=== PATIENT | male | born 1945 | race Caucasian/White ===

== ENCOUNTER → 2023-09-20 08:39 | Outpatient (REF) | payer MEDICARE, OTHER, SELFPAY ==
[2023-09-20 12:06] LABS: Glycohemoglobin (HgbA1c) 6.1 % (4.0-5.6)
== END ==
LOC: HWLAB 08:39
PROVIDERS: ATTENDING PHYSICIAN Physician Assistant
DX: E11.9 Type 2 diabetes mellitus without complications (principal)
CPT/HCPCS: 36415; 83036

== ENCOUNTER → 2023-10-25 08:15 | Outpatient (REF) | payer MEDICARE, OTHER, SELFPAY ==
[2023-10-25 09:47] LABS: % Basophils 0.4 % (0-2); % Eosinophils 2.5 % (0-6); % Immature Granulocytes 0.3 % (0-0.5); % Lymphocytes 28.8 % (20.5-51.1); % Monocytes 10.6 % (1.7-9.3); % Neutrophils 57.4 % (42.2-75.2); Absolute Eosinophils 0.2 10^3/uL (0-0.7); Absolute Monocytes 0.7 10^3/uL (0.1-0.6); Hematocrit 45.5 % (39.0-52.0); Hemoglobin 15.3 g/dL (13.0-18.0); Mean Corp Hgb Conc. 33.6 g/dL (33.0-37.0); Mean Corpuscular Hgb 31.5 pg (27.0-31.0); Mean Corpuscular Volume 93.8 fL (80.0-94.0); Mean Platelet Volume 9.8 fL (7.4-10.4); Nucleated Red Blood Cells % 0 % (-); Platelet Count 154 10^3/uL (130-400); Red Blood Cell Count 4.85 10^6/uL (4.70-6.10); Red Cell Dist. Width 13.6 % (11.5-14.5); White Blood Cell Count 6.9 10^3/uL (4.8-10.8)
[2023-10-25 10:02] LABS: ALT (SGPT) 31 U/L (0-50); AST (SGOT) 37 U/L (17-59); Alkaline Phosphatase 72 U/L (38-126); Carbon Dioxide 27 mmol/L (22-30); Glucose 113 mg/dl (70-99); eGFR > 60.00
[2023-10-25 10:13] LABS: Albumin 4.6 g/dl (3.5-5.0); Blood Urea Nitrogen 18 mg/dl (9-20); Calcium 9.2 mg/dl (8.4-10.2); Chloride 103 mmol/L (98-107); HDL Cholesterol 36 mg/dl; LDL Cholesterol, Calculated 78 mg/dl; Potassium 4.3 mmol/L (3.5-5.1); Sodium 138 mmol/L (135-145); Total Bilirubin 0.7 mg/dl (0.2-1.3); Total Cholesterol 142 mg/dl (50-199); Total Protein 6.9 g/dl (6.3-8.2); Triglyceride 143 mg/dl (10-149); Very Low Density Lipoprotein 28 mg/dl (0-30)
[2023-10-25 10:30] LABS: PSA, Total - Screen 1.69 ng/ml (0.0-4.0)
[2023-10-25 10:47] LABS: Glycohemoglobin (HgbA1c) 6.1 % (4.0-5.6)
[2023-10-25 11:27] LABS: Microalbumin, Random Urine 0.9 mg/dl (0.6-1.7)
== END ==
LOC: HWLAB 08:15
PROVIDERS: ATTENDING PHYSICIAN Physician Assistant
DX: G25.0 Essential tremor (principal); E11.9 Type 2 diabetes mellitus without complications; I10 Essential (primary) hypertension; E78.00 Pure hypercholesterolemia, unspecified; G45.9 Transient cerebral ischemic attack, unspecified; R60.0 Localized edema; Z12.5 Encounter for screening for malignant neoplasm of prostate
CPT/HCPCS: 36415; 80053; 80061; 82043; 83036; 85025; G0103

== ENCOUNTER 2024-06-13 21:12 | Inpatient (IN) | payer MEDICARE, OTHER, SELFPAY ==
[2024-06-13 12:17] VITALS: BP 149/90
[2024-06-13 12:31] LABS: % Basophils 0.3 % (0-2); % Eosinophils 0.6 % (0-6); % Immature Granulocytes 0.2 % (0-0.5); % Lymphocytes 8.3 % (20.5-51.1); % Monocytes 12.6 % (1.7-9.3); Absolute Eosinophils 0.1 10^3/uL (0-0.7); Absolute Lymphocytes 1.2 10^3/uL (1.2-3.4); Absolute Monocytes 1.8 10^3/uL (0.1-0.6); Absolute Neutrophils 11.3 10^3/uL (1.4-6.5); Hematocrit 47.4 % (39.0-52.0); Hemoglobin 16.7 g/dL (13.0-18.0); Mean Corp Hgb Conc. 35.2 g/dL (33.0-37.0); Mean Corpuscular Hgb 32.1 pg (27.0-31.0); Mean Platelet Volume 9.4 fL (7.4-10.4); Nucleated Red Blood Cells % 0 % (-); Platelet Count 159 10^3/uL (130-400); Red Blood Cell Count 5.21 10^6/uL (4.70-6.10); Red Cell Dist. Width 13.9 % (11.5-14.5); White Blood Cell Count 14.4 10^3/uL (4.8-10.8)
[2024-06-13 12:47] LABS: ALT (SGPT) 20 U/L (0-50); AST (SGOT) 26 U/L (17-59); Albumin 4.4 g/dl (3.5-5.0); Alkaline Phosphatase 83 U/L (38-126); Blood Urea Nitrogen 13 mg/dl (9-20); Calcium 9.2 mg/dl (8.4-10.2); Carbon Dioxide 23 mmol/L (22-30); Chloride 104 mmol/L (98-107); Glucose 144 mg/dl (70-99); Potassium 4.5 mmol/L (3.5-5.1); Sodium 139 mmol/L (135-145); Total Bilirubin 0.9 mg/dl (0.2-1.3); Total Protein 6.7 g/dl (6.3-8.2); eGFR > 60.00
[2024-06-13 15:38] VITALS: BP 138/75
--- NOTE | 2024-06-13 16:37 | ED.GENMED ---
History of Present Illness
General
Chief Complaint: Flank Pain
Source: patient
Exam Limitations: none
Time Seen by Provider: 06/13/24 16:09
Nursing documentation reviewed up to this point in time: agreed with
History of Present Illness
History of Present Illness:
79-year-old male right flank pain onset a few days ago history of kidney stones never required stenting has had lithotripsy, type II diabetic on metformin said to Naprosyn with minimal relief no fevers no chills
Past History
Past History
ED Past Medical History: Hypercholesterolemia and Other (Kidney stones, Spinal stenosis)
ED Past Surgical History: Orthopedic (hip replacement) and Urological (Lithotripsy)
Social History
Tobacco: Non-smoker
Alcohol: Occasional
Drug: None
Personal:
Living: with family
Employment: Retired
Family History
Family History: Other (Mother with colon cancer)
Review of Systems
Review of Systems
All Other Systems: Not applicable
Constitutional: Denies fever or fatigue
Respiratory: Reports no symptoms
Cardiac: Reports no symptoms
ABD/GI: Reports abdominal pain and nausea
: Reports flank pain
Phy Exam
Physical Exam
Physical Exam:
Physical Exam
General: 79 male looks uncomfortable
Neck: No jaundice
Heart: s1/s2 regular rate and rhythm, no murmur. equal radial pulses.
Lungs: no acute respiratory distress. clear bilaterally
Abdomen: Tender in the right CVA mild tenderness in the right abdomen
Neuro: alert and oriented. no focal neurological deficits
Skin: no rash
Psychiatric: well kept. interactive and cooperative
Extremities: no edema. no calf tenderness.
Course
Orders/Labs/Results
Orders:
Orders
06/13/24 12:24
Complete Blood Count/With Diff Urgent
Comprehensive Metabolic Panel Urgent
06/13/24 16:09
CT Abd/pel Without Iv Or Oral Urgent
Comment:
Reason For Exam: fan pain
06/13/24 16:29
0.9% Sodium Chloride 1000 ml [Nss] 1,000 ml IV BOLUS
HYDROmorphone [Dilaudid] 1 mg IV NOW STA
Ketorolac [Toradol] 15 mg IV NOW STA
Ondansetron Injectable [Zofran] 4 mg IV NOW STA
06/13/24 16:57
Urinalysis Reflex To Culture Urgent
Date Specimen was Collected: 06/13/24
Time Specimen was Collected: 16:34
Urine Microscopic Reflex Cult Urgent
Abnormal Lab Results
06/13/24 06/13/24
12:24 16:57
WBC 14.4 H 10^3/uL
(4.8-10.8)
MCH 32.1 H pg
(27.0-31.0)
Absolute Neuts (auto) 11.3 H 10^3/uL
(1.4-6.5)
Absolute Monos (auto) 1.8 H 10^3/uL
(0.1-0.6)
Neutrophils % 78.0 H %
(42.2-75.2)
Lymphocytes % 8.3 L %
(20.5-51.1)
Monocytes % 12.6 H %
(1.7-9.3)
Glucose 144 H mg/dl
(70-99)
Urine Ketones 3+ A
(Negative)
Ur Occult Blood Reflex 2+ A
(Negative)
Urine RBC 7-10 A /HPF
(0-2)
Urine Albumin (Reflex) 1+ A
(Neg - Trace)
06/13/24 12:24
06/13/24 12:24
Vital Signs
Initial and Last Documented VS:
Initial Vital Signs
Temp Pulse Resp BP Pulse Ox
98.4 F 84 16 149/90 99
06/13/24 12:17 06/13/24 12:17 06/13/24 12:17 06/13/24 12:17 06/13/24 12:17
Last Documented Vital Signs
Temp Pulse Resp BP Pulse Ox
97.5 F 78 18 131/66 95
06/13/24 18:34 06/13/24 16:56 06/13/24 15:38 06/13/24 18:00 06/13/24 18:30
MDM/Problems Addressed
Differential Diagnosis Includes:
Ureteral stone, strain colitis diverticulitis less likely AAA possible muscle strain
MDM/Problems Addressed:
Right flank
Chronic conditions affecting care:
Prior urologic
Acute Exacerbation and/or Progression of Chronic Illness:
Prior urologic
*Radiology
Radiology exam reviewed: preliminary read by ED provider
*Pulse Oximetry
Patient hypoxic: no
*Radio Television Technical Director Interpretation
Rate: Radio Television Technical Director- N/A
*Critical Care Note
Total Time (30-74mins, 75-104mins- exclusive of procedures): Not Applicable
Update Note
Update Note:
7:30 PM update white count noted urine noted, CT noted patient looks comfortable does have a fairly large proximal stone is diabetic elderly unable to pass for few days reviewed trial of passage at home versus inpatient I do not believe he needs an
urgent stent but I do believe he would benefit from admission to the hospital for close monitoring, he and his are in agreement message sent to urology and hospitalist
ED Attending Note
-
Portions of this chart may have been created with voice recognition software.� Occasional wrong word or��sound alike� substitutions may have occurred due to the inherent limitations of voice recognition software.
Discharge Plan
Departure
Prescriptions:
No Action
simvastatin 40 MG tablet
40 mg PO HS
acetaminophen 500 MG tablet
1,000 mg PO Q6H Qty: 1 0RF
Rx Instructions:
Standing order
Do not exceed >4000 mg daily
aspirin 81 mg Tablet
81 mg PO DAILY
propranolol 40 mg Tablet
40 mg PO BID
primidone 50 mg Tablet
150 mg PO BID
metformin 750 mg Tablet Extended Release 24 Hr
750 mg PO DAILY
Referrals:
Laura Henriquez PA-C [Family Provider] -
Interventions
Interventions:
*Risk Screen - Suicide Last Done: 06/13/24 12:19
*General Assessment Last Done: 06/13/24 16:55
*Neglect/Abuse Screening Last Done: 06/13/24 12:19
*ED- Fall Risk Assessment Last Done: 06/13/24 16:55
*ED COVID-19 Vaccine History Last Done: 06/13/24 16:55
QZ-Nxpphm-Rkwytiihxt Assessment Last Done: 06/13/24 17:02
ED-Male Genitourinary Assessment Last Done: 06/13/24 17:02
Discharge Date and Time
Print Language: [place]
[2024-06-13] MEDS: ZOFRAN 4 MG IV (16:48)
[2024-06-13] MEDS: NSS 1000 IV (16:48)
[2024-06-13] MEDS: DILAUDID 1 MG IV (16:49)
[2024-06-13] MEDS: TORADOL 15 MG IV (16:49)
[2024-06-13 16:55] VITALS: BMI 38.3
[2024-06-13 16:56] VITALS: BP 136/80
[2024-06-13 17:09] LABS: Urine Albumin 1+ (Neg - Trace); Urine Bilirubin Negative (Negative); Urine Character Clear (Clear); Urine Color Yellow; Urine Glucose Negative (Negative); Urine Ketone 3+ (Negative); Urine Leukocyte Negative (Negative); Urine Nitrite Negative (Negative); Urine Occult Blood 2+ (Negative); Urine Urobilinogen Negative (Neg - 1+)
[2024-06-13 17:36] LABS: Urine Squamous Cell 0-2 /LPF (Few); Urine White Cell 0-2 /HPF (0-5)
[2024-06-13 18:00] VITALS: BP 131/66
[2024-06-13] MEDS: ROCEPHIN 1000 MG IV (19:55)
--- NOTE | 2024-06-13 20:18 | HPS.HSE ---
Addendum entered and electronically signed by Kranthi Cooper DO 06/13/24 21:11:
Patient seen and examined independently. Agree with findings and plan as set forth by FREDDY Keen.
Patient is a 79y M with PMH significant for hypertension, DM-II and prior kidney stones who presents to ED complaining of about 3 days of right flank pain. Patient reports multiple prior instances of kidney stones. Required ESWL on one
occasion. No other interventions / procedures. Patient denies any N/V/D, dysuria, frequency, hematuria, etc. No fevers / chills.
Ass:
Right Ureteral Stone
Leukocytosis
Benign Hypertension
DM-II
Essential Tremor
Plan:
Admit for further evaluation and treatment.
Leukocytosis potentially stress response. Afebrile, non-toxic appearing without urinary symptoms.
Continue empiric abx for now.
Supportive care, pain control, tamsulosin.
Urology consulted.
NPO after midnight for possible OR in the AM.
Patient not on antiplatelets, OAC, etc.
Hold metformin and follow glucose. SSI if needed.
Original Note:
Family Physician
-
Family Physician: Laura Henriquez
Chief Complaint
-
right flank pain
History of Present Illness
79-year-old male with PMH for kidney stones, type2 Dm,TIA, HTN, HLD presented for right flank pain for past three days. denied fever, chills, urinary urgency, frequency and burning. denied TOLENTINO,dizzy. denied abdominal pain,n,v,d. patient stated
chronic sob and LE edema.
CT with 7 mm proximal right ureteral calculus with associated mild to moderate right hydroureteronephrosis. received ceftriaxone, Dilaudid, Toradol, normal saline, Zofran in ER. admitting for further management.
Medical History
Past Medical History
Past Medical History: Reports Other
Additional Past Medical History:
type 2 DM
granado palsy
TIA
tremor
HLD
HTN
CAD
kidney stones
cataracts
osteoarthritis
shingles
sleep apnea
RA
Past Surgical History: Reports Other
Additional Past Surgical History:
left hip replacement
melanoma removal
cataracts surgery
right hand finger release
Social History
Tobacco: Non-smoker
Alcohol: Occasional
Drug: None
Personal:
Living: With Family
Family History
Family History: Not pertinent
Allergies / Home Medications
Allergies reflects when Allergies were last updated in [facility].
Home Medications with original date entered in [facility]
Allergy/Medication List:
Allergies
Allergy/AdvReac Type Severity Reaction Status Date / Time
Sulfa (Sulfonamide Allergy Rash Verified 06/13/24 16:35
Antibiotics)
bee sting Allergy Severe Shortness Uncoded 06/13/24 16:35
of Breath,
Throat
Tightness
raw onions Allergy Severe Shortness Uncoded 06/13/24 16:35
of Breath
Home Medications
simvastatin 40 mg tablet 40 mg PO HS 04/02/18
metformin 750 mg tablet,extended release 24 hr 750 mg PO DAILY 05/22/22
primidone 50 mg tablet 150 mg PO BID 05/22/22
propranolol 40 mg tablet 40 mg PO BID 05/22/22
Review of Systems
-
Constitutional: Reports No Symptoms
EENT: Reports No Symptoms
Respiratory: Reports No Symptoms
Cardiac: Reports No Symptoms
Abdomen/GI: Reports No Symptoms
: Reports Flank Pain (right )
Musculoskeletal: Reports No Symptoms
Skin: Reports No Symptoms
Neurological: Reports No Symptoms
Endocrine: Reports No Symptoms
Hematologic/Lymphatic: Reports No Symptoms
Psych: Reports No Symptoms
Physical Exam
Vital Signs
Vital Signs
Temp Pulse Resp BP Pulse Ox
97.5 F 78 18 131/66 95
06/13/24 18:34 06/13/24 16:56 06/13/24 15:38 06/13/24 18:00 06/13/24 18:30
Physical Exam
General: Well Developed, Well Nourished and No Apparent Distress
HEENT: NormoCephalic, Moist mucous membranes and Atraumatic
Respiratory: Clear
Cardiac: S1/S2 and Regular Rhythm; No Murmur or Rub
GI: Soft, Non Tender, Non Distended and Normal Bowel Sounds; No Organomegaly
Rectal: Deferred by Provider
Musculoskeletal: No Clubbing, No Cyanosis and No Edema
Skin: No Rash
Neuro: AO x 3 and Nonfocal/grossly intact
Psych: Calm
Laboratory Results
-
06/13/24 12:24
06/13/24 12:24
Laboratory Results
Total Bilirubin 0.9 mg/dl (0.2-1.3) 06/13/24 12:24
AST 26 U/L (17-59) 06/13/24 12:24
ALT 20 U/L (0-50) 06/13/24 12:24
Alkaline Phosphatase 83 U/L (38-126) 06/13/24 12:24
Data Reviewed
-
CT Scan: Report Reviewed by me
Lab Data: Labs Reviewed by me
Impression/Plan
-
#ureteral calculus with hydronephrosis
-CT with the impression of 7 mm proximal right ureteral calculus with associated mild to moderate right hydroureteronephrosis.Probable cholelithiasis.
-wbc 14.4
-ceftriaxone continued
-oxy Dilaudid prn for pain
-flomax
-strain urine
-keep patient NPO
-urology consulted
# Type 2 diabetes
- Hold metformin
- Sliding scale
- Accu-Chek every 6 hours
# Essential tremor
- Primidone continued
# Hypertension
- Propranolol continued
# Hyperlipidemia
- Statin continued
# DVT prophylaxis
- SCDs
# CODE STATUS
full code
-
#
[2024-06-13 21:28] VITALS: BP 138/68
[2024-06-13 22:15] VITALS: BP 156/72; BMI 38.8
[2024-06-13] MEDS: FLOMAX 0.4 MG PO (22:44)
[2024-06-13] MEDS: MYSOLINE 150 MG PO (22:44)
[2024-06-13] MEDS: LIPITOR 20 MG PO (22:44)
[2024-06-13 22:45] LABS: Glucose - Point of Care 149 mg/dl (70-99)
[2024-06-13] MEDS: INDERAL 40 MG PO (22:45)
[2024-06-14 06:07] LABS: Glucose - Point of Care 127 mg/dl (70-99)
[2024-06-14 07:20] VITALS: BP 130/64
[2024-06-14 07:44] LABS: ALT (SGPT) 15 U/L (0-50); AST (SGOT) 22 U/L (17-59); Albumin 3.6 g/dl (3.5-5.0); Alkaline Phosphatase 72 U/L (38-126); Blood Urea Nitrogen 15 mg/dl (9-20); Calcium 8.7 mg/dl (8.4-10.2); Carbon Dioxide 25 mmol/L (22-30); Chloride 105 mmol/L (98-107); Estimated Creatinine Clearance 62 ml/min; Glucose 128 mg/dl (70-99); HDL Cholesterol 36 mg/dl; LDL Cholesterol, Calculated 71 mg/dl; Potassium 4.3 mmol/L (3.5-5.1); Sodium 138 mmol/L (135-145); Total Bilirubin 0.9 mg/dl (0.2-1.3); Total Cholesterol 130 mg/dl (50-199); Total Protein 5.8 g/dl (6.3-8.2); Triglyceride 119 mg/dl (10-149); Very Low Density Lipoprotein 23 mg/dl (0-30); eGFR > 60.00
[2024-06-14 08:12] LABS: Hemoglobin 14.2 g/dL (13.0-18.0); Mean Corp Hgb Conc. 33.8 g/dL (33.0-37.0); Mean Corpuscular Hgb 31.3 pg (27.0-31.0); Mean Corpuscular Volume 92.5 fL (80.0-94.0); Mean Platelet Volume 10.2 fL (7.4-10.4); Platelet Count 125 10^3/uL (130-400); Red Blood Cell Count 4.54 10^6/uL (4.70-6.10); White Blood Cell Count 10.7 10^3/uL (4.8-10.8)
--- NOTE | 2024-06-14 08:28 | W.PN.HOSP.TC ---
Addendum entered and electronically signed by Felix Hebert MD 06/14/24 13:11:
addendum
I received update from urologist. Patient refused urologic procedure. Patient is feeling well. He had diet with no pain or nausea. Patient wanted to go home and he got dressed up to leave to home. Given instruction given prescription to finish
course of oral antibiotic. Patient verbalized understanding to potential side effects and verbalized understanding to need to follow-up with urology in the office.
Total discharge time spent to see the patient, examine the patient, review data and lab results, discuss discharge plan with patient, nursing staff, urologist around 65 minutes. �
Original Note:
Today's Communication/Plan
-
PT is NPO
f/w urology recommendations
Assessment / Plan
Assessment / Plan
Physical Exam
General: Well Developed, Well Nourished and No Apparent Distress
HEENT: Normocephalic, Moist mucous membranes and Atraumatic
Respiratory: Clear
Cardiac: S1/S2
GI: Soft, Non Tender, Non Distended and Normal Bowel Sounds;
Rectal: No bleeding
Musculoskeletal: No Clubbing, No Cyanosis and mild LE Edema
Skin: No Rash
Neuro: AO x 3 and Nonfocal/grossly intact
Psych: Calm
#ureteral calculus with hydronephrosis
-CT with the impression of 7 mm proximal right ureteral calculus with associated mild to moderate right hydroureteronephrosis.Probable cholelithiasis.
-wbc 14.4, now resolved, down to 10.7
-ceftriaxone continued
-oxy Dilaudid prn for pain
-Flomax
-strain urine
-keep patient NPO
-urology consulted
# Type 2 diabetes
- Hold metformin
- Sliding scale
- Accu-Chek every 6 hours
# Essential tremor
- Primidone continued
# Thrombocytopenia
No bleeding
Monitor
# Hypertension
- Propranolol continued
# Hyperlipidemia
- Statin continued
# DVT prophylaxis
- SCDs
# CODE STATUS
full code
Total time spent to see the patient, examine the patient, review data and lab results, discuss treatment plan with patient, nursing staff around 55 minutes
Anticipated Discharge: Within 24 hours
Subjective/Interval History
-
Date of Service: June 14, 2024
No chest pain
No abdominal / flank pain
No fevers
Objective Data
-
Labs:
Laboratory Results
06/14/24 06/14/24
06:38 07:08
WBC 10.7
Hgb 14.2
Hct 42.0
Plt Count 125 L D
Sodium 138
Potassium 4.3
Chloride 105
Carbon Dioxide 25
BUN 15
Creatinine 1.2
Glucose 128 H
Calcium 8.7
Total Bilirubin 0.9
AST 22
ALT 15
Alkaline Phosphatase 72
Vital Signs:
Vital Signs
Temp Pulse Resp BP Pulse Ox
98.2 F 67 17 130/64 96
06/14/24 07:20 06/14/24 07:20 06/14/24 07:20 06/14/24 07:20 06/14/24 07:20
I&O
06/13/24 06/14/24 06/15/24
06:59 06:59 06:59
Output Total 300 / 300
Balance -300 / -300
[2024-06-14] MEDS: INDERAL 40 MG PO (08:39)
[2024-06-14] MEDS: MYSOLINE 150 MG PO (08:40)
[2024-06-14] MEDS: FLOMAX 0.4 MG PO (08:40)
--- NOTE | 2024-06-14 09:30 | W.PN.URO.CBU ---
Today's Communication / Plan
-
d/cc may have breakfast
Assessment / Plan
-
Came to preop pt but pt no longer interested in surgery [place] that laser is inferior to sound waves in tx of stones and he was asx and willing to wait for availability of eswl Tried to explain to pt about colic and diabetics and sepsis PT
voiced understanding but is refusing surgery Will call office in am to schedule but also spoke to pts concernin fixed eswl centers that may bhe available before mobile unit Also explained that laser and u scopes are the std of care.
Diagnosis
-
Date of Service: June 14, 2024
-
Patient Diagnosis:rt 7 mm stone with pain ongoing 3 days No fevr chills pain gone with this am
Post Op Day:
Subjective
-
asx
Objective
-
Vital Signs
Temp Pulse Resp BP Pulse Ox
98.2 F 67 17 130/64 96
06/14/24 07:20 06/14/24 08:39 06/14/24 07:20 06/14/24 08:39 06/14/24 07:20
Intake and Output
06/13/24 06/14/24 06/15/24
06:59 06:59 06:59
Output Total 300 / 300
Balance -300 / -300
Output:
Urine, Voided 300 / 300
Laboratory Results
06/14/24 06:38
06/14/24 07:08
Review of Systems
-
: Flank Pain
Physical Exam
-
General - well developed, well nourished, no acute distress
Chest - clear bilaterally
Abdomen - soft, non-tender, positive bowel sounds, no CVAT, no incisional pain or distention
Genitalia - normal
Rectal - normal
Skin - warm & dry with no rash
Neuro - AOx3, no motor deficits
Extremities - no clubbing, no cyanosis, no edema
Incision - clean, dry
Dressing - clean, dry, intact
Care Review
Data Reviewed
Discussed with: Hospitalist and Nursing
CT Scan: Image Pers Reviewed
[2024-06-14 09:36] LABS: Glycohemoglobin (HgbA1c) 6.1 % (4.0-5.6)
[2024-06-14 11:56] VITALS: BP 123/61
--- NOTE | 2024-06-14 12:14 | CM ---
Met with pt at bedside; initial assessment completed
Lives with his in a 2 story home; 1 SAQIB, FF set-up
Independent at baseline, single point cane occasionally, drives
DME - single point cane, transport chair, rolling walker, toilet rails
SNF - no past hx
HH - [facility] in past
Has ride at d/c
PCP - Laura Henriquez
Pharm - [facility] on [address]
Reviewed IMM
Plan - home no needs
--- NOTE | 2024-06-14 13:04 | W.DCSUMMARY ---
Discharge Summary
Discharge Data
Date of Admission: 06/13/24
Date of Discharge: 06/14/24
-
Pending Results: No
Hospital Course
79 years old male who presented with right-sided flank pain. No history of fever, chills or hematuria. Scan of the abdomen and pelvis showed 7 mm proximal right ureter stone with hydronephrosis. Patient had leukocytosis admission. Patient was
started on intravenous antibiotic. He had normal renal function. He was admitted to the hospital. Urology was consulted. Leukocytosis resolved. Patient did not have pain or nausea in the hospital. He did not require pain medication. He was
evaluated by urologist. Patient did not want to proceed with urology procedure during this hospitalization. Urologist referred him to the office to schedule ureteroscopy as outpatient. Patient remained hemodynamically stable and was discharged
home in a stable condition. He was given a prescription to finish course of oral antibiotic. Patient verbalized understanding to potential complication from postponing his a procedure and he still wanted to go home.
Discharge Plan
-
Patient Disposition: Home (Routine Discharge)
Discharge Diagnosis/Procedures: Right ureteral calculus with hydronephrosis
Follow with urologist as instructed
Diet: As tolerated
Referrals:
Laura Henriquez PA-C [Family Provider] -
Vincenzo Ojeda MD [Active] - (please call and schedule sound wave lithotripsy with [facility] [phone] if too much pain please call but if fever chills then go to emergency room immediately v [facility]
MAY OFFER SOUND WAVE LITHOTRIPSY BEFORE NEXT SCHEDULED INDRA AT [place]/ [place])
Prescriptions:
New
cefuroxime axetil 500 mg tablet
500 mg PO BID Qty: 10 0RF
Continued
simvastatin 40 MG tablet
40 mg PO HS
propranolol 40 mg Tablet
40 mg PO BID
primidone 50 mg Tablet
150 mg PO BID
metformin 750 mg Tablet Extended Release 24 Hr
750 mg PO DAILY
Rx Instructions:
Evening with meals
Discharge Orders:
Discharge Patient (As Directed); Ordered 06/14/24
Ordered By: Felix Hebert
Discharge Date and Time
Print Language: GREEK
== END 2024-06-14 12:30 | disposition home or self-care (01) | DRG 694 ==
LOC: 2 SOUTH 21:12
PROVIDERS: Emergency Medicine; Physician Assistant; Registered Nurse; ADMITTING PHYSICIAN Hospitalist; ATTENDING PHYSICIAN Internal Medicine; EMERGENCY PHYSICIAN Emergency Medicine; FAMILY PHYSICIAN Physician Assistant; OTHER PHYSICIAN Specialist
DX: N13.2 Hydronephrosis with renal and ureteral calculous obstruction (principal); I25.10 Atherosclerotic heart disease of native coronary artery without angina pectoris; I10 Essential (primary) hypertension; G47.30 Sleep apnea, unspecified; E11.36 Type 2 diabetes mellitus with diabetic cataract; E78.00 Pure hypercholesterolemia, unspecified; D72.829 Elevated white blood cell count, unspecified; G25.0 Essential tremor; G51.0 Bell's palsy; M06.9 Rheumatoid arthritis, unspecified; D69.6 Thrombocytopenia, unspecified; M19.90 Unspecified osteoarthritis, unspecified site; Z79.84 Long term (current) use of oral hypoglycemic drugs; Z96.642 Presence of left artificial hip joint; Z88.2 Allergy status to sulfonamides; Z79.899 Other long term (current) drug therapy
CPT/HCPCS: 74176; 80053; 80061; 81003; 81015; 82962; 83036; 85025; 85027; 87086; 96361; 96374; 96375; 99284

== ENCOUNTER → 2024-07-03 09:04 | Outpatient (REF) | payer MEDICARE, OTHER, SELFPAY ==
[2024-07-03 11:59] LABS: Blood Urea Nitrogen 21 mg/dl (9-20); Calcium 8.9 mg/dl (8.4-10.2); Carbon Dioxide 25 mmol/L (22-30); Chloride 106 mmol/L (98-107); Glucose 127 mg/dl (70-99); Potassium 4.7 mmol/L (3.5-5.1); Sodium 143 mmol/L (135-145); eGFR > 60.00
[2024-07-05 14:14] LABS: Primidone 6.4 ug/mL (5.0-12.0)
== END ==
LOC: HWRAD 09:04
PROVIDERS: ATTENDING PHYSICIAN Psychiatry & Neurology Neurology; FAMILY PHYSICIAN Physician Assistant; OTHER PHYSICIAN Specialist; REFERRING PHYSICIAN Urology
DX: G45.9 Transient cerebral ischemic attack, unspecified (principal); N13.2 Hydronephrosis with renal and ureteral calculous obstruction; N20.0 Calculus of kidney; G25.0 Essential tremor
CPT/HCPCS: 36415; 74018; 80048; 80184; 80188

== ENCOUNTER → 2024-07-21 14:21 | Outpatient (REF) | payer MEDICARE, OTHER, SELFPAY | LOC: HWRAD 14:21 | PROVIDERS: ATTENDING PHYSICIAN Urology; FAMILY PHYSICIAN Physician Assistant | DX: N23 Unspecified renal colic (principal); N13.2 Hydronephrosis with renal and ureteral calculous obstruction | CPT/HCPCS: 74176 ==

== ENCOUNTER → 2024-08-14 13:21 | Outpatient (REF) | payer MEDICARE, OTHER, SELFPAY ==
[2024-08-14 15:47] LABS: Urine Albumin 1+ (Neg - Trace); Urine Bilirubin Negative (Negative); Urine Character Clear (Clear); Urine Color Yellow; Urine Glucose Negative (Negative); Urine Ketone Negative (Negative); Urine Leukocyte Negative (Negative); Urine Nitrite Negative (Negative); Urine Occult Blood 4+ (Negative); Urine Urobilinogen Negative (Neg - 1+)
[2024-08-14 16:20] LABS: Urine Mucus Moderate
[2024-08-14 16:21] LABS: Urine Red Blood Cell 50-60 /HPF (0-2)
[2024-08-14 16:22] LABS: Urine Bacteria Few (Negative)
[2024-08-14 16:41] LABS: ALT (SGPT) 15 U/L (0-50); AST (SGOT) 18 U/L (17-59); Albumin 4.4 g/dl (3.5-5.0); Alkaline Phosphatase 64 U/L (38-126); Blood Urea Nitrogen 12 mg/dl (9-20); Calcium 9.3 mg/dl (8.4-10.2); Carbon Dioxide 24 mmol/L (22-30); Chloride 109 mmol/L (98-107); Glucose 125 mg/dl (70-99); Potassium 4.4 mmol/L (3.5-5.1); Sodium 142 mmol/L (135-145); Total Bilirubin 0.4 mg/dl (0.2-1.3); Total Protein 6.7 g/dl (6.3-8.2); Uric Acid 6.7 mg/dl (3.5-8.5); eGFR > 60.00
== END ==
LOC: HWLAB 13:21
PROVIDERS: ATTENDING PHYSICIAN Physician Assistant
DX: N20.0 Calculus of kidney (principal); Z87.448 Personal history of other diseases of urinary system; E11.9 Type 2 diabetes mellitus without complications
CPT/HCPCS: 36415; 80053; 81003; 81015; 83036; 84550

== ENCOUNTER → 2024-12-22 09:09 | Outpatient (REF) | payer MEDICARE, OTHER, SELFPAY ==
[2024-12-22 12:28] LABS: Hematocrit 43.2 % (39.0-52.0); Hemoglobin 14.1 g/dL (13.0-18.0); Mean Corp Hgb Conc. 32.6 g/dL (33.0-37.0); Mean Corpuscular Volume 92.9 fL (80.0-94.0); Nucleated Red Blood Cells % 0 % (-); Platelet Count 159 10^3/uL (130-400); Red Cell Dist. Width 14.3 % (11.5-14.5)
[2024-12-22 12:47] LABS: ALT (SGPT) 23 U/L (0-50); AST (SGOT) 26 U/L (17-59); Albumin 4.2 g/dl (3.5-5.0); Alkaline Phosphatase 63 U/L (38-126); Blood Urea Nitrogen 15 mg/dl (9-20); Calcium 8.9 mg/dl (8.4-10.2); Carbon Dioxide 28 mmol/L (22-30); Chloride 108 mmol/L (98-107); Glucose 112 mg/dl (70-99); Potassium 4.3 mmol/L (3.5-5.1); Sodium 140 mmol/L (135-145); Total Protein 6.6 g/dl (6.3-8.2); eGFR > 60.00
== END ==
LOC: HWLAB 09:09
PROVIDERS: ATTENDING PHYSICIAN Psychiatry & Neurology Neurology; FAMILY PHYSICIAN Physician Assistant
DX: G25.0 Essential tremor (principal)
CPT/HCPCS: 36415; 80053; 80184; 80188; 85025

== ENCOUNTER → 2025-01-25 09:58 | Outpatient (REF) | payer MEDICARE, OTHER, SELFPAY ==
[2025-01-25 12:44] LABS: ALT (SGPT) 24 U/L (0-50); AST (SGOT) 30 U/L (17-59); Albumin 4.5 g/dl (3.5-5.0); Alkaline Phosphatase 54 U/L (38-126); Blood Urea Nitrogen 13 mg/dl (9-20); Calcium 8.9 mg/dl (8.4-10.2); Carbon Dioxide 26 mmol/L (22-30); Chloride 104 mmol/L (98-107); Glucose 116 mg/dl (70-99); HDL Cholesterol 39 mg/dl; LDL Cholesterol, Calculated 86 mg/dl; Potassium 4.8 mmol/L (3.5-5.1); Sodium 139 mmol/L (135-145); Total Protein 7.1 g/dl (6.3-8.2); Very Low Density Lipoprotein 23 mg/dl (0-30); eGFR > 60.00
[2025-01-25 12:51] LABS: Hematocrit 47.6 % (39.0-52.0); Hemoglobin 15.2 g/dL (13.0-18.0); Mean Corp Hgb Conc. 31.9 g/dL (33.0-37.0); Mean Corpuscular Volume 95.8 fL (80.0-94.0); Nucleated Red Blood Cells % 0 % (-); Platelet Count 167 10^3/uL (130-400); Red Cell Dist. Width 14.1 % (11.5-14.5)
[2025-01-25 12:54] LABS: Glycohemoglobin (HgbA1c) 5.8 % (4.0-5.9)
[2025-01-25 13:14] LABS: PSA, Total - Screen 1.68 ng/ml (0.0-4.0)
== END ==
LOC: HWLAB 09:58
PROVIDERS: ATTENDING PHYSICIAN Physician Assistant
DX: Z00.00 Encounter for general adult medical examination without abnormal findings (principal); M47.816 Spondylosis without myelopathy or radiculopathy, lumbar region; G25.0 Essential tremor; E11.9 Type 2 diabetes mellitus without complications; Z12.5 Encounter for screening for malignant neoplasm of prostate
CPT/HCPCS: 36415; 80053; 80061; 83036; 84443; 85025; G0103